=== PATIENT | male | born 1975 | race Caucasian/White ===

== ENCOUNTER 2021-03-05 19:37 | Emergency (ER) | payer BC, SELFPAY ==
[2021-03-05 19:54] VITALS: BP 138/82; PULSE 80; RESP 14; TEMP 37.2; O2SAT 98
--- NOTE | 2021-03-05 20:28 | ED.SKABFB ---
HPI - Skin/Abscess/Foreign Bdy General Chief complaint: Skin/Abscess/Foreign Body Stated complaint: Rash to the Body and Legs Time Seen by Provider: 03/05/21 20:28 Source: patient and RN notes reviewed Mode of arrival: ambulatory Limitations: no limitations History of Present Illness HPI narrative: 46 year old male who presents to [facility] care with complaints of generalized rash to legs and feet and torso and spreading to lower back since Thursday. Patient had been hiking and [place] prior to appearance of rash. Patient reports that rash is itchy, no fevers, chills or sweats, denies known insect or tick bite. He has been using Aveeno bath,hydrocortisone cream, and Benadryl with no improvement. Patient denies any difficulty with swallowing or any difficulty with his breathing. MD complaint: rash Related Data Allergies Allergy/AdvReac Type Severity Reaction Status Date / Time No Known Allergies Allergy Unknown Verified 03/05/21 19:52 Review of Systems Review of Systems: CONSTITUTIONAL: Denies fever, chills, or sweats. EYES: Denies visual changes, redness, or discharge. ENT: Denies rhinorrhea, congestion, sore throat, or otalgia. CARDIOVASCULAR: Denies chest pain, palpitations, or edema. RESPIRATORY: Denies cough or dyspnea. GASTROINTESTINAL: Denies abdominal pain, nausea, vomiting, or diarrhea. GENITOURINARY: Denies dysuria or hematuria. SKIN:Positive for scattered rash with itching. MUSCULOSKELETAL: Denies back pain,no joint pains , or myalgia. NEUROLOGIC: Denies headache, numbness, or weakness. PSYCHIATRIC: Denies anxiety or depression. All systems reviewed & are unremarkable except as noted in HPI and below PMFSH Past Medical History Medical History (Updated 03/09/21 @ 13:09 by Ines El NP) Bilateral ankle fractures Fracture of both femurs Tibia/fibula fracture, shaft surgical repair with internal fixation Family History Family History (Updated 03/09/21 @ 13:09 by Ines El NP) Other No significant family history Social History Social History (Updated 03/09/21 @ 13:06 by Ines El NP) Smoking packs per day: 1 Smoking cigarettes per day: 20.0 Years smoked: 25 Smoking pack-years: 25.00 Smoking status: Current every day smoker Alcohol intake: current Alcohol use details: social Substance use: never Living arrangements: with family Gender identity (if verbalized by the patient): Male Comments At time of signature agree with nursing documentation of past social medical and surgical history, No relevant family history pertinent to presenting complaint. Exam Narrative: GENERAL: Well-appearing, well-nourished, and in no acute distress. HEAD: Normocephalic, atraumatic. EYES: PERRLA and EOMI. ENT: Nares clear, no rhinorrhea or epistaxis. Mucous membranes moist.TM's normal with good light reflex, throat pink with no swelling or exudates no tonsil enlargement NECK: Supple. No lymphadenopathy CHEST: Clear to auscultation. No respiratory distress.SAO2 98% on room air HEART: Regular rate and rhythm. No murmur heard. Normal peripheral pulses. ABDOMEN: Soft, nontender, nondistended, normal active bowel sounds. EXTREMITIES: Normal range of motion. No edema. SKIN: Warm, dry, scattered red raised patchy rash mainly to lower extremities and torso, spreading to lower back areas are itchy NEURO: No focal deficits. Alert and oriented x3. Course Vital Signs Vital signs: Vital Signs Temperature 37.2 C 03/05/21 19:54 Pulse Rate 80 03/05/21 19:54 Respiratory Rate 14 03/05/21 19:54 Blood Pressure 138/82 03/05/21 19:54 Pulse Oximetry 98 03/05/21 19:54 Temperature 37.2 C 03/05/21 19:54 Pulse Rate 80 03/05/21 19:54 Respiratory Rate 14 03/05/21 19:54 Blood Pressure 138/82 03/05/21 19:54 Pulse Oximetry 98 03/05/21 19:54 MDM - Skin/Abscess/Foreign Bdy Differential Diagnosis Differential diagnosis: Likely abscess of ski
== END 2021-03-05 20:46 | disposition home or self-care (01) ==
PROVIDERS: Emergency Provider Registered Nurse; PCP Family Medicine
DX: L25.9 Unspecified contact dermatitis, unspecified cause (principal); F17.210 Nicotine dependence, cigarettes, uncomplicated
CPT/HCPCS: 99203; G0463